=== PATIENT | male | born 1960 | race Caucasian/White ===

== ENCOUNTER 2019-05-29 08:59 | Emergency (ER) | payer OTHER ==
[2019-05-29 09:38] VITALS: PULSE 82; TEMP 97.9; BMI 30.2
[2019-05-29 09:52] VITALS: BP 146/82
--- NOTE | 2019-05-29 10:03 | PDOC ---
History of Present Illness - General Chief Complaint: Blood Pressure Problem Stated Complaint: HIGH BLOOD PRESSURE Time Seen by Provider: 05/29/19 09:08 History Source: Patient Exam Limitations: No Limitations - History of Present Illness Initial Comments: 05/29/19 09:58 CHIEF COMPLAINT: Bifrontal headache and hypertension HISTORY OF PRESENT ILLNESS: 58-year-old man states he has been having a headache for several days. The headache is bifrontal and behind his eyes. The onset was more mild and has become more severe today. This morning, due to the headache, he decided to check his pressure at home and the systolic pressure was greater than 170 leading him to come to the emergency department. He also states that he has had some mild chest discomfort last week, but not recently. Over the last 48 hours he has not had any chest discomfort. The chest discomfort is not related to exertion. The symptoms are mild and there are no other symptoms of nausea, vomiting, diaphoresis, or radiation. Patient has a history of hypertension, diabetes, and hyperlipidemia. He is working with his physician to decide whether he should go on insulin in addition to the oral agents that he is currently taking. His last checkup with his primary physician was approximately 3 months ago, he states his blood pressure was well controlled, but his hemoglobin A1c was elevated. He does not know the level. Patient quit smoking 30 years ago. REVIEW OF SYSTEMS: GENERAL/CONSTITUTIONAL: No fever or chills. No weakness. No weight change. HEAD, EYES, EARS, NOSE AND THROAT: Positive headache, see HPI. No blurry vision. No ear pain or discharge. No sore throat. No jaw pain. CARDIOVASCULAR: No chest pain recently, but a few days ago he did have some mild chest discomfort, very brief, not associated with exertion. RESPIRATORY: No cough, wheezing, or hemoptysis. GASTROINTESTINAL: No nausea, vomiting, diarrhea or constipation. No rectal bleeding. GENITOURINARY: No dysuria, frequency, or change in urination. MUSCULOSKELETAL: No joint or muscle swelling or pain. No neck or back pain. SKIN AND BREASTS: No rash or easy bruising. NEUROLOGIC: Positive headache. No vertigo. No loss of consciousness. No focal numbness or weakness in the arms or legs. No change in balance. PSYCHIATRIC: No depression or anxiety. ENDOCRINE: No increased thirst. No abnormal weight change. HEMATOLOGIC/LYMPHATIC: No anemia, easy bleeding, or history of blood clots. ALLERGIC/IMMUNOLOGIC: No hives or skin allergy. No latex allergy. Past History - Past Medical History Allergies/Adverse Reactions: Allergies Allergy/AdvReac Type Severity Reaction Status Date / Time No Known Allergies Allergy Verified 05/29/19 09:17 Home Medications: Ambulatory Orders Atorvastatin Ca [Lipitor] 20 mg PO HS 04/23/16 Ibuprofen 800 mg PO TID PRN 04/23/16 Liraglutide [Victoza -] 1.8 mg SQ DAILY@0700 04/23/16 Lisinopril [Zestril] 2.5 mg PO DAILY 04/23/16 Saxagliptin HCl/Metformin HCl [Kombiglyze Xr 2.5-1,000 mg Tab] 1 tab PO BID Aspirin [Aspirin EC] 81 mg PO DAILY 05/29/19 Sildenafil Citrate [Viagra] 100 mg PO ASDIR 05/29/19 COPD: No Diabetes: Yes HTN: Yes Hypercholesterolemia: Yes - Surgical History Appendectomy: Yes (AGE 10) - Psycho Social/Smoking Cessation Hx Smoking History: Former smoker (Quit smoking 30 years ago) Hx Alcohol Use: Yes (SOCIAL) Drug/Substance Use Hx: No Substance Use Type: None *Physical Exam - Vital Signs Last Vital Signs Temp Pulse Resp BP Pulse Ox 97.9 F 82 16 146/82 95 05/29/19 09:05 05/29/19 09:05 05/29/19 09:05 05/29/19 09:52 05/29/19 09:05 - Physical Exam Comments: 05/29/19 10:03 GENERAL: The patient is awake, alert, and fully oriented, in no acute distress. HEAD: Normal with no signs of trauma. EYES: Pupils equal, round and reactive to light, extraocular movements intact, sclera anicteric, conjunctiva clear. Fundi with sharp disks, normal vessels, no hemorrhages. ENT: Ears normal, nares patent, oropharynx clear without exudates. Moist mucous membranes. NECK: Normal range of motion, supple without lymphadenopathy, JVD, or masses. LUNGS: Breath sounds equal, clear to auscultation bilaterally. No wheezes, and no crackles. HEART: Regular rate and rhythm, normal S1 and S2 without murmur, rub or gallop. ABDOMEN: Soft, nontender, normoactive bowel sounds. No guarding, no rebound. No masses. EXTREMITIES: Normal range of motion, no edema. No clubbing or cyanosis. No cords, erythema, or tenderness. NEUROLOGICAL: Cranial nerves II through XII grossly intact. Normal speech, normal gait. Strength is 5/5 in all extremities. Sensation is intact in all extremities. PSYCH: Normal mood, normal affect. SKIN: Warm, Dry, normal turgor, no rashes or lesions noted. Heart Score/ECG Review - ECG Impressions Comment:: 05/29/19 10:33 Twelve-lead EKG shows normal sinus rhythm at a rate of 76 bpm. The axis is normal. The intervals are normal. There is no acute ST elevation or depression. Impression: Normal twelve-lead EKG ED Treatment Course - LABORATORY CBC & Chemistry Diagram: 05/29/19 10:10 05/29/19 10:10 - RADIOLOGY Radiology Studies Ordered: Category Date Time Status HEAD CT WITHOUT CONTRAST [CT] Stat CT Scan 05/29/19 09:55 Ordered Medical Decision Making - Medical Decision Making 05/29/19 11:08 58-year-old man with history of hypertension and diabetes mellitus. Presents complaining of bilateral headache and blood pressure out of control. Physical examination is notable for normal vision and normal neurological exam. Heart and lung examination is also normal. There is no peripheral edema. Twelve-lead EKG was reviewed and is normal. Initial impression, hypertension [id number] with headache, rule out end organ injury. Laboratory results reviewed. Creatinine is normal. Troponin is normal. Urinalysis is normal. Glucose was elevated greater than 300, but patient states he had sugary breakfast and should be coming down now. Repeat fingerstick is significantly improved. Repeat blood pressure measurements are significantly improved. Patient is feeling better. Final impression: Headache without evidence of acute [employer] C[employer] injury. Hypertension without endorgan injury. Diabetes mellitus with diabetic hyperglycemia. Patient advised to continue his medications, to begin to maintain a blood pressure diary, and to follow-up with his primary care physician for medication adjustment for both hypertension and diabetes. Patient states he will call his doctor on Friday. Discharge - Discharge Information Problems reviewed: Yes Clinical Impression/Diagnosis: Hypertension Qualifiers: Hypertension type: essential hypertension Qualified Code(s): I10 - Essential ( primary) hypertension Headache Qualifiers: Headache type: tension-type Condition: Stable Disposition: HOME - Admission No - Follow up/Referral Referrals: Jacobo Ramos MD [Primary Care Provider] - 2 Days - Patient Discharge Instructions Patient Printed Discharge Instructions: DI for High Blood Pressure, How to Monitor Your Blood Pressure at Home Additional Instructions: You were evaluated today for elevated blood pressure and a headache. The EKG, head CT, and blood tests for urine and kidney function as well as heart enzymes were all normal. The blood pressure came down while resting in the emergency department. Your blood sugar was elevated over 300 but also came down while resting in the emergency department. You are advised to maintain a blood pressure diary, checking the results twice a day and recording it in the diary. Call your primary care physician on Friday to arrange a follow-up visit for adjustment of diabetic and blood pressure medication. Return to the emergency department for any severe or progressive symptoms. - Post Discharge Activity
[2019-05-29 10:20] LABS: BASO % 0.3 % (0-2.0); EOS % 1.7 % (0-4.5); HEMATOCRIT 47.7 % (35.4-49); HEMOGLOBIN 16.3 GM/dl (11.7-16.9); LYMPH % 19.6 % (8-40); MCH 31.5 pg (25.7-33.7); MCHC 34.2 g/dl (32.0-35.9); MEAN CELL VOLUME 91.9 fl (80-96); MEAN PLT VOLUME 9.9 fl (7.5-11.1); MONO % 8.5 % (3.8-10.2); NEUT % 69.9 % (42.8-82.8); PLATELET COUNT 181 K/MM3 (134-434); RBC 5.19 M/mm3 (4.00-5.60); RDW 12.2 % (11.9-15.9); WHITE BLOOD COUNT 7.8 K/mm3 (4.0-10.8)
[2019-05-29 10:35] LABS: ALBUMIN 4.5 g/dl (3.4-5.0); BILIRUBIN,TOTAL 0.8 mg/dl (0.2-1); CALCIUM 8.6 mg/dl (8.5-10); CREATININE 0.9 mg/dl (0.55-1.3); POTASSIUM 3.3 mmol/L (3.5-5.1)
[2019-05-29] MEDS ORDERED: ACETAMINOPHEN 325 MG TABLET (FP) PO ONE (11:16)
[2019-05-29] MEDS ORDERED: ACETAMINOPHEN 325 MG TABLET (FP) ONE (11:46)
--- NOTE | 2019-05-29 20:12 | EKG ---
Test Reason : Blood Pressure : / mmHG Vent. Rate : 076 BPM Atrial Rate : 076 BPM P-R Int : 158 ms QRS Dur : 086 ms QT Int : 372 ms P-R-T Axes : -14 -05 013 degrees QTc Int : 418 ms NORMAL SINUS RHYTHM NORMAL ECG NO PREVIOUS ECGS AVAILABLE Confirmed by MD ARLENE, VANESSA ([id number]) on 05/29/2019 8:11:59 PM Referred By: CHELLE ALVAREZ Confirmed By:VANESSA JACOBS MD
== END 2019-05-29 11:52 | disposition home or self-care (01) ==
LOC: FER 08:59
DX: I10 Essential (primary) hypertension (principal); G44.209 Tension-type headache, unspecified, not intractable
CPT/HCPCS: 36415; 70450-TC; 80053; 81003; 82550; 82962; 84484; 85025; 93005; 99283-25

== ENCOUNTER 2022-01-23 07:38 | Emergency (ER) | payer OTHER ==
[2022-01-23 07:46] VITALS: BP 136/80; PULSE 86; TEMP 98.4; BMI 28.8
[2022-01-23] MEDS ORDERED: KETOROLAC TROMETHAMINE 30 MG/1 ML VIAL IM ONE (09:23)
[2022-01-23] MEDS ORDERED: LIDOCAINE 5% TOPICAL PATCH TP ONE (09:23)
[2022-01-23] MEDS ORDERED: diazePAM 5 MG TABLET PO ONE (09:33)
[2022-01-23] MEDS ORDERED: diazePAM 5 MG TABLET ONE (09:38)
[2022-01-23] MEDS ORDERED: LIDOCAINE 5% TOPICAL PATCH ONE (09:38)
[2022-01-23] MEDS ORDERED: KETOROLAC TROMETHAMINE 30 MG/1 ML VIAL ONE (09:38)
[2022-01-23] MEDS ORDERED: LIDOCAINE PATCH REMOVAL MC SCH (22:00)
== END 2022-01-23 12:30 | disposition home or self-care (01) ==
LOC: JER 07:38 → JERFT 07:38
PROC: 3E023GC Introduction of Other Therapeutic Substance into Muscle, Percutaneous Approach (ICD-10-PCS; principal; 2022-01-23)
DX: M54.2 Cervicalgia (principal); M54.50 Low back pain, unspecified; V49.40XA Driver injured in collision with unspecified motor vehicles in traffic accident, initial encounter
CPT/HCPCS: 72100-TC-FY; 72125-TC; 99284-25

== ENCOUNTER 2024-03-18 08:13 | Emergency (ER) | payer OTHER ==
[2024-03-18 08:24] VITALS: BP 140/71; PULSE 85; RESP 18; TEMP 97.7; BMI 27.6
[2024-03-18] MEDS ORDERED: ACETAMINOPHEN 325 MG TABLET (FP) ONE (09:00)
[2024-03-18] MEDS: ACETAMINOPHEN 325 MG TABLET (FP) PO ONE (09:03)
== END 2024-03-18 09:59 | disposition home or self-care (01) ==
LOC: FER 08:13
DX: S93.692A Other sprain of left foot, initial encounter (principal); W10.8XXA Fall (on) (from) other stairs and steps, initial encounter
CPT/HCPCS: 73590-TC-LT-FY; 73610-TC-LT-FY; 73630-TC-LT; 99283-25